=== PATIENT | female | born 1985 | race Two or more races ===

== ENCOUNTER 2021-05-20 12:42 | Emergency (ER) | payer MEDICAID, SELFPAY ==
[2021-05-20 14:22] VITALS: BP 105/76; PULSE 80; RESP 14; TEMP 36.6; O2SAT 97; BMI 31.1
[2021-05-20 14:52] LABS: Apearance,Urine Turbid (Clear); Color,Urine Dark Yellow (Yellow); PH,Urine 5.5 (5.0-8.5); Specific Gravity, Urine > 1.030 (1.005-1.030)
[2021-05-20 14:53] LABS: Glucose,Urine (UA) Negative (Negative); Protein,Urine 2+ (Negative)
[2021-05-20 14:54] LABS: Bilirubin,Urine 1+ (Negative); Blood, Urine 4+ (Negative); Ketones,Urine Negative (Negative); UTC Leukocyte Esterase,Urine Negative (Negative); UTC Nitrate,Urine Negative (Negative); Urobilinogen,Urine 1 EU/dl (0.2)
--- NOTE | 2021-05-20 15:18 | HMH.EDUTC ---
[facility] [place] Clinical Impression: UTI (urinary tract infection) Qualifiers: Urinary tract infection type: site unspecified Hematuria presence: without hematuria Qualified Code(s): N39.0 - Urinary tract infection, site not specified Disposition: Home, Self-Care Condition on Discharge: Good Instructions: DI for Urinary Tract Infection (UTI) Additional Instructions: Drink plenty of fluids. Take tylenol or ibuprofen for pain or fever. Take the medications as directed. Follow up with your regular doctor. GO TO THE ER FOR ANY WORSENING SYMPTOMS Prescriptions: Fluconazole [Diflucan 150mg tab] 150 mg PO ONCE #1 tab Transmission Status: Received by [id number] Nitrofurantoin Monohyd/M-Cryst [Macrobid 100 mg Capsule] 100 mg PO BID 5 Days #10 cap Transmission Status: Received by [id number] Nystatin [Nystatin Cr 100,000 Units/GM 30GM] 1 applicatio TP BID 14 Days #1 gm Transmission Status: Received by [id number] Referrals: Provider,Referral, [Primary Care Provider] - Time of Disposition: 15:44 Medical Decision Making - Medical Records Medical records reviewed: No: I reviewed the patient's medical records. - Imtiaz Inquiry Pt receiving controlled substance: No Vital Signs: 05/20/21 14:22 05/20/21 16:07 Temperature 98 F 98 F Temperature Source Temporal Artery Scan Pulse Rate 80 Pulse Rate [Left] 80 Respiratory Rate 14 14 Blood Pressure 105/76 L Blood Pressure [Right Arm] 105/76 L Blood Pressure Mean [Right Arm] 85 02 Sat by Pulse Oximetry 97 - Lab Data Lab results reviewed: Yes: I reviewed the patient's lab results. Lab Results 05/20/21 14:49: Urine Color Dark yellow, Urine Appearance Turbid, Urine pH 5.5, Ur Specific Bryce > 1.030 H, Urine Protein 2+, Urine Glucose (UA) Negative, Urine Ketones Negative, Urine Blood 4+, Urine Nitrate Negative, Urine Bilirubin 1+ A, Urine Urobilinogen 1, Ur Leukocyte Esterase Negative Orders (Tests/Meds): ORDERS Category Date Time Status Urine Culture Stat Micro 05/20/21 14:29 Results [facility] [place] - General Stated complaint: sore throat, cough, runny nose, congestion Time Seen by Provider: 05/20/21 15:18 Mode of Arrival: Ambulatory Source of Information: Patient Limitations: No Limitations Description of Symptoms (Recalled from Triage Doc. by RN): pt c/o burning with urination, vaginal itching and discharge. HEENT Symptoms (Recalled from RN notes): No Resp Symptoms (Recalled from RN notes): No Skin Symptoms (Recalled from RN notes): No MS Symptoms (Recalled from RN notes): No Functional Status (Recalled from RN notes): wnl - History of Present Illness Provider Complaint: She states that she has had dysuria for the past 2 days. She believes she has a uti. - Related Data Previous Rx's Medication Instructions Recorded Fluconazole [Diflucan 150mg tab] 150 mg PO ONCE #1 tab 05/20/21 Nitrofurantoin Monohyd/M-Cryst 100 mg PO BID 5 Days #10 cap 05/20/21 [Macrobid 100 mg Capsule] Nystatin [Nystatin Cr 100,000 1 applicatio TP BID 14 Days #1 gm 05/20/21 Units/GM 30GM] Allergies Allergy/AdvReac Type Severity Reaction Status Date / Time No Known Allergies Allergy Verified 05/20/21 14:27 - Worker's Comp Is this a Worker's Comp case?: No H History - Hepatitis A Screen Drug use history?: No High risk sexual behaviors?: No History of sexually transmitted infection?: No Currently employed?: No Childcare worker?: No Do you have indoor plumbing?: Yes Do you have electricity?: Yes Attestation statement:: This patient has been screened for Hepatitis A risk factors. I have reviewed the patient's past medical history: Yes ROS Obtained: Yes All systems reviewed & no additional complaints - Constitutional Constitutional: Denies chills, Denies fever(s) - Genitourinary Female Genitourinary: Reports as per HPI, Reports urinary frequency - Musculoskeletal Musculoskeletal: Re
[2021-05-20 16:07] VITALS: BP 105/76; PULSE 80; RESP 14; TEMP 36.6
[2021-05-22 22:07] LABS: Neisseria gonorrhoeae, NAA Negative (Negative)
== END 2021-05-20 16:08 | disposition home or self-care (01) ==
PROVIDERS: Emergency Provider Nurse Practitioner Family
DX: N30.00 Acute cystitis without hematuria (principal); B96.20 Unspecified Escherichia coli [E. coli] as the cause of diseases classified elsewhere
CPT/HCPCS: 81003; 87086; 87088; 87186; 87491; 87591; 99202; G0463

== ENCOUNTER 2021-06-24 13:26 | Emergency (ER) | payer MEDICAID, SELFPAY ==
[2021-06-24 13:41] VITALS: BP 130/86; PULSE 84; TEMP 36.9; O2SAT 98; BMI 30.2
--- NOTE | 2021-06-24 14:35 | HMH.EDUTC ---
[facility] – [place] Disposition Clinical Impression: Burning with urination, Exposure to COVID-19 virus Disposition: Home, Self-Care Condition on Discharge: Good Instructions: DI for COVID-19 (Suspected or Confirmed ), Preventing the Spread of Coronavirus Discharge Instructions Additional Instructions: Make sure to be drinking plenty of water to help to flush kidneys Follow up with your Family Doctor if symptoms persist or no improvement for referral to urology *Monitor Temp, Over the counter Motrin or Tylenol as directed/as needed Tylenol every 4 hours and Motrin every 6 hours (as long as your family doctor has told you that you can take it) for fever or pain. and straight to ER if unable to lower temp less than 101.0 after medication given *Warm salt water gargles may help to soothe the throat *Throat Lozenges *Warm fluids like tea with honey may help to soothe the throat *Sleep elevated *Humidifier/Vaporizer Follow up IMMEDIATELY for new or worsening symptoms or no Noticeable improvement over the next 48-72 hours. 911 for difficulty breathing or swallowing You were tested for today for COVID19 your test result should be back in the next 24-48 hours, you may check your results on the [facility] if you have trouble logging on or checking your results you may call support If you are positive someone from the hospital will be calling you Make sure to take your Vitamins Vit. C Vit D and Zinc if you can take them Referrals: Provider,Referral, [Primary Care Provider] - As needed Time of Disposition: 15:12 Medical Decision Making - Imtiaz Inquiry Pt receiving controlled substance: No Imtiaz was queried for this patient: No Vital Signs: 06/24/21 13:41 06/24/21 14:47 06/24/21 15:23 Temperature 98.4 F 98.4 F 98.4 F Temperature Source Oral Oral Pulse Rate 91 H Pulse Rate [Left Radial] 84 91 H Respiratory Rate 19 19 Blood Pressure 107/62 L Blood Pressure [Left Arm] 130/86 107/62 L Blood Pressure Mean [Left Arm] 100 77 Blood Pressure Source [Left Arm] Automatic Cuff Blood Pressure Position [Left Arm] Sitting 02 Sat by Pulse Oximetry 98 100 Oxygen Delivery Method Room Air - Lab Data Lab results reviewed: Yes: I reviewed the patient's lab results. Lab Results 06/24/21 14:42: Urine Color Yellow, Urine Appearance Clear, Urine pH 5.5, Ur Specific Leeper 1.030, Urine Protein Negative, Urine Glucose (UA) Negative, Urine Ketones Negative, Urine Blood Trace, Urine Nitrate Negative, Urine Bilirubin Negative, Urine Urobilinogen 1, Ur Leukocyte Esterase Negative Orders (Tests/Meds): ORDERS Category Date Time Status Covid-19 Nasal PCR ([facility]) Routine Lab 06/24/21 14:22 Received [facility] [place] HPI - General Stated complaint: right side hip pain, chills Time Seen by Provider: 06/24/21 14:35 Mode of Arrival: Ambulatory Source of Information: Patient Limitations: No Limitations Description of Symptoms (Recalled from Triage Doc. by RN): pt reprots continuing to have uti symptoms, lower back pain, burning with urination, tired feeling. Pt reports was seen in an ER in [facility] last week and started on antibiotcs. - History of Present Illness Provider Complaint: Patient does not speak [place] used interpretur to comminicated via ipad Patient states she has been having lower back pain with burning with urination States that she has been having chills and one of her children was positive for COVID two weeks ago Denies known fever - Related Data Previous Rx's Medication Instructions Recorded Fluconazole [Diflucan 150mg tab] 150 mg PO ONCE #1 tab 05/20/21 Nitrofurantoin Monohyd/M-Cryst 100 mg PO BID 5 Days #10 cap 05/20/21 [Macrobid 100 mg Capsule] Nystatin [Nystatin Cr 100,000 1 applicatio TP BID 14 Days #1 gm 05/20/21 Units/GM 30GM] Allergies Allergy/AdvReac Type Severity Reaction Status Date / Time No Known Allergies Allergy Verified 05/20/21 14:27 [facility] History - Hepatitis A Screen
[2021-06-24 14:47] VITALS: BP 107/62; PULSE 91; RESP 19; TEMP 36.9; O2SAT 100; BMI 26.4
[2021-06-24 14:50] LABS: Apearance,Urine Clear (Clear); Bilirubin,Urine Negative (Negative); Blood, Urine Trace (Negative); Color,Urine Yellow (Yellow); Glucose,Urine (UA) Negative (Negative); Ketones,Urine Negative (Negative); PH,Urine 5.5 (5.0-8.5); Protein,Urine Negative (Negative); UTC Leukocyte Esterase,Urine Negative (Negative); UTC Nitrate,Urine Negative (Negative); Urobilinogen,Urine 1 EU/dl (0.2)
[2021-06-24 15:23] VITALS: BP 107/62; PULSE 91; RESP 19; TEMP 36.9
== END 2021-06-24 15:27 | disposition home or self-care (01) ==
LOC: ER 13:40 → UTC 13:40
PROVIDERS: Emergency Provider Nurse Practitioner
DX: M54.50 Low back pain, unspecified (principal); R30.0 Dysuria; Z20.822 Contact with and (suspected) exposure to COVID-19
CPT/HCPCS: 81003; 99203; C9803; G0463; U0003; U0005